=== PATIENT | male | born 1960 | race Caucasian/White ===

== ENCOUNTER → 2021-04-10 07:32 | Outpatient (BNVA) | payer OTHER, SELFPAY | PROVIDERS: Visit Provider Physician Assistant | DX: Z12.11 Encounter for screening for malignant neoplasm of colon (principal); Z78.9 Other specified health status | CPT/HCPCS: 99202 ==

== ENCOUNTER → 2021-07-18 07:31 | Outpatient (BNVA) | payer OTHER, SELFPAY | PROVIDERS: Visit Provider Physician Assistant | DX: Z12.11 Encounter for screening for malignant neoplasm of colon (principal); G47.30 Sleep apnea, unspecified; K21.9 Gastro-esophageal reflux disease without esophagitis; Z78.9 Other specified health status; Z86.010 Personal history of colon polyps | CPT/HCPCS: 99212 ==

== ENCOUNTER 2021-07-21 00:03 | Emergency (ER) | payer OTHER, SELFPAY ==
[2021-07-21 00:08] VITALS: BP 109/73; PULSE 90; RESP 18; TEMP 36.6; O2SAT 96; BMI 28.3
[2021-07-21 00:36] LABS: Appearance Urine CLEAR; Color Urine STRAW; Glucose Urine UA 100 MG/DL (NEG); Leukocyte Esterase Urine NEG (NEG); Nitrite Urine NEG (NEG); PH 5.5 (5.0-8.0); Specific Gravity - Urine <= 1.005 (1.005-1.025); Urine Blood NEG (NEG); Urine Ketones NEG (NEG); Urine Protein NEG (NEG-TRACE)
--- NOTE | 2021-07-21 00:37 | ED_ITS ---
HPI - Psych General Chief Complaint: Psychiatric Symptoms Stated Complaint: SI Time Seen by Provider: 07/21/21 00:18 Source: patient Mode of arrival: ambulatory Limitations: no limitations History of Present Illness HPI Narrative: Patient comes to the emergency room complaining of suicidal thoughts, alcohol abuse. Patient refusing to say much, patient states that he has a lot of things going on in his head. Patient states that he feels suicidal, patient has prior history of suicide attempts, mostly cutting. Patient is upset because he he was brought to [facility] rather than in [place] where he usually gets care. Patient denies homicidal ideation Related Data Home Medications Medication Instructions Recorded Confirmed Unobtainable 04/10/21 Allergies Allergy/AdvReac Type Severity Reaction Status Date / Time No Known Allergies Allergy Verified 07/18/21 07:32 [No Known Allergies*] Review of Systems Review of Systems: Constitutional : No Weight loss, No Fever, No Chills, No Night Sweats, No Fatigue, No Malaise ENT/Mouth : No Hearing loss, No Ear Pain, No Nasal Congestion, No Sinus Pain, No Hoarseness, No sore throat, No Rhinorrhea, No Swallowing Difficulty Eyes: No Eye Pain, No Swelling, No Redness, No Foreign Body, No Discharge, No Vision Changes Cardiovascular : No Chest Pain, No SOB, No Dyspnea on Exertion, No Orthopnea, No Edema, No Palpitations Respiratory : No Cough, No Sputum, No Wheezing, No Smoke Exposure, No Dyspnea Gastrointestinal : No Nausea, No Vomiting, No Diarrhea, No Constipation, No abdominal Pain, No Hematochezia, No Melena Genitourinary : no irregular bleeding, No Dysuria, No Urinary Frequency, No Hematuria, No Urinary Incontinence, No Urgency, No Flank Pain, No Urinary Flow Changes, No Hesitancy Musculoskeletal : No joint pain, No Myalgias, No Joint Swelling Skin : No Skin Lesions, No rash Neuro : No Weakness, No Numbness, No Paresthesias, No Loss of Consciousness, No Dizziness, No Headache Psych : Complaining of anxiety and depression, suicidal ideation, no homicidal ideation. Heme/Lymph: No Bruising, No Bleeding,No Lymphadenopathy Endocrine : No Polyuria, No Polydipsia, No Temperature Intolerance PMFSH Past Medical History Medical History Colonic polyp History of colon polyps Long uvula Sleep apnea Social History Social History Advance Directives: No Physical Exam Vital Signs: Vital Signs: Last Vital Signs Temp 98 F 07/21/21 00:08 Pulse 90 07/21/21 00:08 Resp 18 07/21/21 00:08 BP 109/73 07/21/21 00:08 Pulse Ox 96 07/21/21 00:08 BMI result Body Mass Index 28.3 Const: Other: Appearance: Alert. Oriented X3. No acute distress. Eyes: Pupils equal, round and reactive to light. ENT: Pharynx normal. Neck: Normal inspection. Neck supple. No lymph nodes noted. No crepitus CVS: Normal heart rate and rhythm. Pulses normal. Normal S1 and S2 Respiratory: No respiratory distress. Breath sounds normal. No Wheezing. No r ales Abdomen: Soft and nontender. No rigidity. No distention. Skin: Skin warm and dry. Normal skin color. Normal skin turgor. Extremities: No lower extremity edema. No Lacerations. No Rash Neuro: Oriented X 3. No motor deficit. No sensory deficit. Moving all extremities. No slurred speech. CN 2 through 12 grossly intact Psych: Seems that, teary Course Course Course Narrative: Although labs are pending. Behavioral health network consult will be obtained likely in the morning. Patient is on a Section 12 Patient's U tox is positive for cocaine Physician observation started at 01:49 Sign-out given to Dr. Arreola [facility] - Psych Lab Data Result diagrams: 07/21/21 01:12 07/21/21 01:12 Labs: Lab Results 07/21/21 07/21/21 07/21/21 Range/Units 00:27 00:27 00:28 WBC (4.8-10.8) X10*3/uL RBC (4.60-5.80) X10*6/uL Hgb (14.0-18.0) g/dl Hct (42.0-52.0) % MCV (80.0-98.0) fL MCH (27.0-33.0) pg MCHC (31.0-36.0) g/dl RDW (11.0-16.0) % Plt Count (160-400) X10*3/uL MPV (9.4-12.4) fL Immature Gran % (Auto) (0.0-0.4) % Neut % (Auto) (45-73) % Lymph % (Auto) (20-40) % [place] % (Auto) (2-11) % Eos % (Auto) (0-4) % Baso % (Auto) (0-2) % Lymph # (Auto) (1.2-4.9) X10*3/uL [place] # (Auto) (0.1-1.2) X10*3/uL Eos # (Auto) (0.0-0.4) X10*3/uL Baso # (Auto) (0.0-0.2) X10*3/uL Abs Immat Gran (auto) (0.00-0.03) X10*3/uL Absolute Neuts (auto) (2.0-8.3) x10*3/uL Absolute Nucleated RBC (0.0-0.012) X10*3/uL Nucleated RBC % (auto) (0.0-0.2) /100WBC Sodium (135-145) mmol/L Potassium (3.3-5.1) mmol/L Chloride (96-108) mmol/L Carbon Dioxide (22-29) mmol/L Anion Gap (12-20) BUN (9-16) mg/dL Creatinine (0.5-1.4) mg/dL Estim Creat Clear Calc Estimated GFR Random Glucose (60-115) mg/dL Calcium (8.4-10.2) mg/dL Magnesium (1.6-2.6) mg/dL Total Bilirubin (0.0-1.0) mg/dL Direct Bilirubin (0.0-0.5) mg/dL AST (5-37) U/L ALT (0-40) U/L Alkaline Phosphatase (39-117) U/L Total Protein (6.5-8.0) g/dL Albumin (3.5-5.0) g/dL Urine Color STRAW Urine Appearance CLEAR Urine pH 5.5 (5.0-8.0) Ur Specific [place] <= 1.005 (1.005-1.025) Urine Protein NEG (NEG-TRACE) MG/DL Urine Glucose (UA) 100 H (NEG) MG/DL Urine Ketones NEG (NEG) MG/DL Urine Blood NEG (NEG) Urine Nitrite NEG (NEG) Ur Leukocyte Esterase NEG (NEG) Urine Opiates Screen Not Detected (Not Detect) Urine Fentanyl Screen Not Detected (Not Detect) Ur Barbiturates Screen Not Detected (Not Detect) Ur Phencyclidine Scrn Not Detected (Not Detect) Ur Amphetamines Screen Not Detected (Not Detect) U Benzodiazepines Scrn Not Detected (Not Detect) Urine Cocaine Screen POSITIVE H (Not Detect) U Marijuana (THC) Screen Not Detected (Not Detect) Ethyl Alcohol mg/dL COVID-19 (LOKESH) Negative (Negative) COVID-19 Clin Com See Note 07/21/21 07/21/21 07/21/21 Range/Units 01:12 01:12 01:12 WBC 8.1 (4.8-10.8) X10*3/uL RBC 4.99 (4.60-5.80) X10*6/uL Hgb 15.9 (14.0-18.0) g/dl Hct 45.6 (42.0-52.0) % MCV 91.4 (80.0-98.0) fL MCH 31.9 (27.0-33.0) pg MCHC 34.9 (31.0-36.0) g/dl RDW 14.1 (11.0-16.0) % Plt Count 415 H (160-400) X10*3/uL MPV 8.9 L (9.4-12.4) fL Immature Gran % (Auto) 0.7 H (0.0-0.4) % Neut % (Auto) 51.4 (45-73) % Lymph % (Auto) 38.1 (20-40) % [place] % (Auto) 8.2 (2-11) % Eos % (Auto) 0.9 (0-4) % Baso % (Auto) 0.7 (0-2) % Lymph # (Auto) 3.1 (1.2-4.9) X10*3/uL [place] # (Auto) 0.7 (0.1-1.2) X10*3/uL Eos # (Auto) 0.1 (0.0-0.4) X10*3/uL Baso # (Auto) 0.1 (0.0-0.2) X10*3/uL Abs Immat Gran (auto) 0.06 H (0.00-0.03) X10*3/uL Absolute Neuts (auto) 4.2 (2.0-8.3) x10*3/uL Absolute Nucleated RBC 0.000 (0.0-0.012) X10*3/uL Nucleated RBC % (auto) 0.0 (0.0-0.2) /100WBC Sodium 141 (135-145) mmol/L Potassium 3.9 (3.3-5.1) mmol/L Chloride 105 (96-108) mmol/L Carbon Dioxide 27 (22-29) mmol/L Anion Gap 13 (12-20) BUN 5 L (9-16) mg/dL Creatinine 0.90 (0.5-1.4) mg/dL Estim Creat Clear Calc 81.5 Estimated GFR > 60 Random Glucose 77 (60-115) mg/dL Calcium 9.7 (8.4-10.2) mg/dL Magnesium 2.4 (1.6-2.6) mg/dL Total Bilirubin 0.3 (0.0-1.0) mg/dL Direct Bilirubin < 0.2 (0.0-0.5) mg/dL AST 30 (5-37) U/L ALT 35 (0-40) U/L Alkaline Phosphatase 73 (39-117) U/L Total Protein 7.6 (6.5-8.0) g/dL Albumin 4.8 (3.5-5.0) g/dL Urine Color Urine Appearance Urine pH (5.0-8.0) Ur Specific [place] (1.005-1.025) Urine Protein (NEG-TRACE) MG/DL Urine Glucose (UA) (NEG) MG/DL Urine Ketones (NEG) MG/DL Urine Blood (NEG) Urine Nitrite (NEG) Ur Leukocyte Esterase (NEG) Urine Opiates Screen (Not Detect) Urine Fentanyl Screen (Not Detect) Ur Barbiturates Screen (Not Detect) Ur Phencyclidine Scrn (Not Detect) Ur Amphetamines Screen (Not Detect) U Benzodiazepines Scrn (Not Detect) Urine Cocaine Screen (Not Detect) U Marijuana (THC) Screen (Not Detect) Ethyl Alcohol 232 mg/dL COVID-19 (LOKESH) (Negative) COVID-19 Clin Com Discharge Plan Discharge Clinical Impression: Alcohol abuse, Suicidal ideation, Polysubstance abuse Patient Disposition: Still a Patient Prescriptions: No Action Unobtainable 0RF
[2021-07-21 00:49] LABS: COVID-19 Test Negative (Negative)
[2021-07-21 00:53] LABS: Amphetamine Screen Urine Not Detected (Not Detect); Barbiturates, Urine Not Detected (Not Detect); Benzodiazepines Screen Urine Not Detected (Not Detect); Cannabinoid Screen Urine Not Detected (Not Detect); Cocaine Screen Urine POSITIVE (Not Detect); Fentanyl, urine Not Detected (Not Detect); Opiate Screen Urine Not Detected (Not Detect); Phencyclidine Screen Urine Not Detected (Not Detect)
[2021-07-21 01:16] LABS: MANUAL DIFF FLAG NO
[2021-07-21 01:27] LABS: Basophils Absolute Auto 0.1 X10*3/uL (0.0-0.2); Basophils Percent Auto 0.7 % (0-2); Eosinophils Absolute Auto 0.1 X10*3/uL (0.0-0.4); Eosinophils Percent Auto 0.9 % (0-4); Hematocrit 45.6 % (42.0-52.0); Hemoglobin 15.9 g/dl (14.0-18.0); Imm Gran Abs Auto 0.06 X10*3/uL (0.00-0.03); Imm Gran Pct Auto 0.7 % (0.0-0.4); Lymphocytes Absolute Auto 3.1 X10*3/uL (1.2-4.9); Lymphocytes Percent Auto 38.1 % (20-40); Mean Corpuscular HGB Conc 34.9 g/dl (31.0-36.0); Mean Corpuscular Hemoglobin 31.9 pg (27.0-33.0); Mean Corpuscular Volume 91.4 fL (80.0-98.0); Mean Platelet Volume 8.9 fL (9.4-12.4); Monocytes Absolute Auto 0.7 X10*3/uL (0.1-1.2); Monocytes Percent Auto 8.2 % (2-11); Neutrophils Absolute Auto 4.2 x10*3/uL (2.0-8.3); Neutrophils Percent Auto 51.4 % (45-73); Platelet Count 415 X10*3/uL (160-400); Red Blood Count 4.99 X10*6/uL (4.60-5.80); Red Cell Distribution Width 14.1 % (11.0-16.0); White Blood Count 8.1 X10*3/uL (4.8-10.8)
[2021-07-21 01:34] LABS: Ethanol 232 mg/dL
[2021-07-21 01:38] LABS: Alanine Aminotransferase 35 U/L (0-40); Albumin Level 4.8 g/dL (3.5-5.0); Alkaline Phosphatase 73 U/L (39-117); Anion Gap 13 (12-20); Aspartate Amino Transferase 30 U/L (5-37); Bilirubin Direct < 0.2 mg/dL (0.0-0.5); Bilirubin Total 0.3 mg/dL (0.0-1.0); Blood Urea Nitrogen 5 mg/dL (9-16); Calcium 9.7 mg/dL (8.4-10.2); Carbon Dioxide 27 mmol/L (22-29); Chloride 105 mmol/L (96-108); Creatinine Clr Calc Pharmacy 81.5; Estimated Glomerular Filt Rate > 60; Glucose Random 77 mg/dL (60-115); Magnesium 2.4 mg/dL (1.6-2.6); Potassium 3.9 mmol/L (3.3-5.1); Sodium 141 mmol/L (135-145); Total Protein 7.6 g/dL (6.5-8.0)
--- NOTE | 2021-07-21 06:46 | PC.NURSE ---
Patient slept through the night, no distress observed/reported, Amharic speaking, awaiting BHN assessment in the morning, unable to obtain med rec, [facility], VSS, will continue to monitor.
[2021-07-21 07:28] VITALS: BP 93/63; PULSE 80; TEMP 36.6; O2SAT 96
--- NOTE | 2021-07-21 07:51 | PC.NURSE ---
pt is asleep, resps are = and nonlabored. pt is awaiting BHN evaluation.
--- NOTE | 2021-07-21 13:05 | PC.NURSE ---
pt is asleep and easily arousable, awaiting bed assignment from magen wallace.
--- NOTE | 2021-07-21 14:25 | MHC.CARE ---
Pt is a 61 y/o , Omani speaking, male who is previously unknown to the CARE Team.? Yesterday, pt presented to the ED via ambulance with a complaint of worsening depression and suicidal ideation.? Pt resides in [place] and was here in [place] visiting his at the time the ambulance was called.? He reports that he has been off his Prozac for approximately 2 months because it hasn?t been refilled.? He stated that he has to have a mental health evaluation at the [facility] to get his prescriptions refilled.? Pt stated that he has been consuming more alcohol than is his norm as a means of self-medicating since his refills were discontinued.? Pt stated that he fan approximately 2 beers a day and now is consuming up to 7.? He reports that he experiences depression and anxiety, and takes Prozac for his depression.? At present he denies SI and anxiety.? He denied experiencing SI last night but did have a BAL of 232 at 0112 AM when he arrived.? Pt has tested positive for cocaine.? He did not discuss his cocaine use.?? He reports that he is experiencing some depression now but is having no thoughts of self-harm or SI. Pt reports a suicide attempt approximately 7 years ago in which he cut his wrists.? He was subsequently hospitalized in [place] [facility] the [facility] for approximately [facility].? He stated he has not had any attempts since but has had 4 inpatient hospitalizations since, with the last one being in 2018. Pt is alert and oriented x4 and is assessed in his room in the behavioral health pod of the ED.? He is dressed in hospital attire, appears neat, and his stated age.? He is assessed for risk with the help of a Skid Wrapper as pt is not Romanian proficient.? He is engaged in the assessment.? He is not help seeking, nor is he help rejecting.? He stated that he intends on contacting the [facility] to reconcile the issue with his medications.? He is not interested in an inpatient stay as he has services through the [facility] and he feels safe at present.? His speech and eye contact are unremarkable.? His affect is flat.? He does not appear delusional or experiencing symptoms of psychosis.? He denies AVH, SI, HI, , and self-harm urges.? Insight, judgement, memory, concentration, and impulse control appear good. Pt does not appear to meet criteria for inpatient level of care or involuntary admission.? CARE Team has contacted the [facility] team in an effort to confirm if pt had indeed been on Prozac and to assist in scheduling an appointment.? Both attempts failed to get someone on the phone and messages were left.
[2021-07-21] MEDS: Atorvastatin Calcium 40 MG TABLET PO (15:00)
[2021-07-21] MEDS: Gabapentin 300 MG CAPSULE 900 MG PO (15:00)
== END 2021-07-21 15:09 | disposition home or self-care (01) ==
PROVIDERS: Emergency Provider Emergency Medicine
DX: R45.851 Suicidal ideations (principal); F10.10 Alcohol abuse, uncomplicated; Y90.7 Blood alcohol level of 200-239 mg/100 ml; F19.10 Other psychoactive substance abuse, uncomplicated; Z91.51 Personal history of suicidal behavior; Z20.822 Contact with and (suspected) exposure to COVID-19
CPT/HCPCS: 36415; 80048; 80076; 80307; 81003; 82077; 83735; 85025; 87635; 99284

== ENCOUNTER 2021-08-04 10:44 | Outpatient (REF) | payer OTHER, SELFPAY ==
[2021-08-04 11:34] LABS: COVID-19 Test Positive (Negative); IDNOW Serial# 9DB6401D
== END 2021-08-04 10:45 | disposition home or self-care (01) ==
LOC: HO.LAB 10:44
PROVIDERS: Visit Provider Internal Medicine
DX: Z20.822 Contact with and (suspected) exposure to COVID-19 (principal)
CPT/HCPCS: 87635; C9803

== ENCOUNTER → 2021-11-13 07:20 | Outpatient (BNVA) | payer OTHER, SELFPAY | PROVIDERS: Visit Provider Physician Assistant | DX: K21.9 Gastro-esophageal reflux disease without esophagitis (principal); G47.30 Sleep apnea, unspecified; Z86.010 Personal history of colon polyps | CPT/HCPCS: 99212 ==

== ENCOUNTER 2022-03-14 07:02 | Day surgery (SDC) | payer OTHER, SELFPAY ==
[2022-03-12 10:24] VITALS: BMI 27.3
--- NOTE | 2022-03-13 09:10 | HO.ANESPROP2 ---
Documented by User: Danae Izaguirre NP 03/13/22 09:11 HPI - Anesthesia Eval Consult details Narrative: 61yo M for Upper Endoscopy and Colonoscopy [facility] Active Problems Active Problems: All Active Problems (Updated 03/12/22 @ 10:13 by Ailyn Michel RN) Encounter for screening colonoscopy (Acute) Poor historian (Acute) Acid reflux (Acute) History of colon polyps (Acute) Sleep apnea (Acute) Past Medical History Medical History (Updated 03/12/22 @ 10:13 by Ailyn Michel RN) History of colon polyps Long uvula Sleep apnea Family History Family History Maternal Grandmother Cancer Maternal Aunt Cancer Surgical History Surgical History (Updated 03/12/22 @ 10:23 by Ailyn Michel RN) History of surgery on arm History of throat surgery Hx of colonoscopy Hx of eye surgery Social History Social History (Updated 11/13/21 @ 08:02 by Whit Sanchez PA-C) Household Members Other:: Alcohol intake: current Patient Tobacco Use Status: Current everyday Tobacco user Use of substances other than those prescribed or required for medical reasons: No Have you been hit, kicked, punched, or otherwise hurt by someone within the past year? If so, by whom?: No Are you DNR?: No Advance Directives: No Advance Directives Information Provided: Yes Current occupational status: disabled Meds Allergies Allergy/AdvReac Type Severity Reaction Status Date / Time No Known Allergies Allergy Verified 11/13/21 07:25 [No Known Allergies*] Home Medications Medication Instructions Recorded Confirmed Last Taken Type atorvastatin 80 mg tablet 40 mg PO DAILY 07/21/21 03/12/22 Unknown History gabapentin 300 mg capsule 900 mg PO TID 07/21/21 03/12/22 Unknown History lidocaine 5 % topical patch 1 patch topical DAILY 07/21/21 03/12/22 Unknown History naproxen 375 mg tablet 375 mg PO Q8H PRN Pain 07/21/21 03/12/22 Unknown History omeprazole 20 mg tablet,delayed 20 mg PO DAILY 07/21/21 03/12/22 Unknown History release tizanidine 4 mg capsule 4 mg PO BID PRN Pain 11/13/21 03/12/22 Unknown History Exam Exam Date and Time: March 13, 2022 0910 Height,Weight and Vital Signs: Height 5 ft 5 in Weight 74.389 kg Pertinent Lab Results Pertinent Lab Results: Laboratory Tests 07/21/21 07/21/21 01:12 01:12 WBC 8.1 Hgb 15.9 Hct 45.6 Plt Count 415 H Sodium 141 Potassium 3.9 Chloride 105 Carbon Dioxide 27 BUN 5 L Creatinine 0.90 Assessment and Plan Assessment Anesthesia Assessment: Chart Reviewed Documented by User: Velvet Lee MD 03/14/22 10:44 [facility] Past Medical History Medical History (Updated 03/12/22 @ 10:13 by Ailyn Michel RN) History of colon polyps Long uvula Sleep apnea Family History Family History Maternal Grandmother Cancer Maternal Aunt Cancer Family history of problems with anesthesia: No Surgical History Surgical History (Updated 03/12/22 @ 10:23 by Ailyn Michel RN) History of surgery on arm History of throat surgery Hx of colonoscopy Hx of eye surgery History of Problems with Anesthesia: No Social History Social History (Updated 11/13/21 @ 08:02 by Whit Sanchez PA-C) Household Members Other:: Alcohol intake: current Patient Tobacco Use Status: Current everyday Tobacco user Use of substances other than those prescribed or required for medical reasons: No Have you been hit, kicked, punched, or otherwise hurt by someone within the past year? If so, by whom?: No Are you DNR?: No Advance Directives: No Advance Directives Information Provided: Yes Current occupational status: disabled Meds Allergies Allergy/AdvReac Type Severity Reaction Status Date / Time No Known Allergies Allergy Verified 11/13/21 07:25 [No Known Allergies*] Home Medications Medication Instructions Recorded Confirmed Last Taken Type atorvastatin 80 mg tablet 40 mg PO DAILY 07/21/21 03/12/22 Unknown History gabapentin 300 mg capsule 900 mg PO TID 07/21/21 03/12/22 Unknown History lidocaine 5 % topical patch 1 patch topical DAILY 07/21/21 03/12/22 Unknown History naproxen 375 mg tablet 375 mg PO Q8H PRN Pain 07/21/21 03/12/22 Unknown History omeprazole 20 mg tablet,delayed 20 mg PO DAILY 07/21/21 03/12/22 Unknown History release tizanidine 4 mg capsule 4 mg PO BID PRN Pain 11/13/21 03/12/22 Unknown History Exam Airway Mallampati Class: II (Missing multiple teeth top and bottom, nothing loose) TM Dist: >3cm Neck ROM: Full Heart: rrr Lungs: cta Assessment and Plan Assessment Anesthesia Assessment: Anesthesia Plan Discussed and Chart Reviewed Final Anesthetic Review Family History of Problems with Anesthesia: No History of Problems with Anesthesia: No NPO: Yes ASA Class: III Final Preanesthetic Review: No Changes in Pt Med Stat, Meds/Allgs Chart Reviewed and Consent Obtained/Reviewed Patient Risk: Intermediate Procedure Risk: Intermediate Anesthetic Plan Anesthetic Plan: MAC: Disposition: Standard PACU
[2022-03-14 09:07] VITALS: BP 116/79; PULSE 64; RESP 18; TEMP 36.1; O2SAT 98
[2022-03-14 09:08] VITALS: BMI 25.7
[2022-03-14] MEDS: Lactated Ringers 1,000 ML 100 ML IVCONT (09:29)
--- NOTE | 2022-03-14 10:52 | MHC.SHP ---
Pre-Procedural Eval Section A Date of Service: 03/14/22 Section B Chief Complaint: R/o malik's, personal hx of polyps Details of Present Illness: 61 y.[facility], reports having polyps. No personal or fam hx of colon cancer. Also has longstanding GERD + smokes. Here for EGD/colo. Relevant Family History (Specify if Yes): No Relevant Social History: Other (specify) (tobacco, cocaine ) Present Medications: see Short Stay Collaborative assessment Medical History: Significant History ([place], substance use, hx of polyps, GERD ) Allergies: Allergies Allergy/AdvReac Type Severity Reaction Status Date / Time No Known Allergies Allergy Verified 11/13/21 07:25 [No Known Allergies*] Review of Systems Review of Systems Comment: Ten point ROS negative except as above Exam Exam Comment: Gen appear: No acute distress, well nourished HEENT: no icterus Chest: No overt resp distress Abd: soft, nontender, nondistended Psych: Stable affect, answering questions appropriately Neuro: A/Ox3 noted to move all extremities spontaneously Ext: no peripheral edema Plan Diagnosis/Plan: Unchanged I have reviewed the history and physical and performed a pertinent physical examination on my patient. No changes have occurred unless specified. Time Spent With Patient Time: Total time managing care of this patient today ____ minutes.
--- NOTE | 2022-03-14 11:01 | P.OP_ITS ---
Operative Note Operative Note Date of Service: 03/14/22 Narrative: Procedure:?Esophagogastroduodenoscopy Indication:?GERD r/o BE. Endoscopist:?Lina Headley MD Anesthesia Provider:?Dr Velvet Jaffe Anesthesia type:?MAC Instrument:?Olympus GIF-H190 ?? EGD Procedure:?? The procedure, indications, preparation and potential complications were reviewed with the patient, who indicated understanding and gave written informed consent to proceed. A physical exam was performed. The endoscope was introduced through the mouth, and advanced to the third part of duodenum. The mucosa was carefully examined on slow withdrawal of the endoscope. The patient tolerated the procedure well. There were no immediate complications.? ? EGD Findings:? * Esophagus:? Normal mucosa. Z line noted at 37 cm. There was a hiatal hernia with the diaphragmatic pinch noted at 40 cm. Cold forceps biopsies were taken at the GE junction. * Stomach:?Normal gastric mucosa. Random cold forceps gastric biopsies were taken to rule out H Pylori infection.? * Duodenum:?Erythema, edema and erosions noted in duodenal bulb. Cold forceps biopsies were taken from the duodenal bulb and second part of the duodenum. Impression:? * Normal esophagus (biopsy) * Hiatal hernia * Normal gastric mucosa (biopsy) * Bulbar duodenitis (biopsy) Recommendations:?? * Follow path results. * Avoid NSAIDs * Smoking cessation counseling. See separate documentation for colonoscopy (Dr Hercules)
--- NOTE | 2022-03-14 11:35 | W.PM.OPN ---
Operative Note Operative Note Date of Service: 03/14/22 Narrative: Operative Information Procedure Description: Colonoscopy Indication: screening Anesthesia: MAC COLONOSCOPY Instrument: Olympus variable stiffness pediatric scope 190L Colonoscopy Monitoring: Vital signs and clinical assessment, continuous EKG monitoring, Pulse oximetry, Carbon Dioxide monitoring and blood pressure monitoring were done throughout the procedure. Colon withdrawal time was 10 minutes. Procedure: The patient was placed in the left lateral decubitis position and pre-procedure medications were administered. After a digital rectal examination of the ano-rectum, the video colonoscope was inserted into the rectum and advanced through the colon to the cecum/TI. The colonoscope was slowly withdrawn in a retrograde panoramic fashion and the colon mucosa was carefully examined including a retroflexed view of the rectum. Findings and interventions are described below. Procedure Difficulty: easy Findings: Terminal Ileum-not intubated due to debris in right colon Cecum:normal Ascending Colon: 10 mm sessile polyp removed with cold snare Transverse Colon -normal Descending Colon:normal Sigmoid Colon: mild diverticulosis Rectum: Retroflexion with small internal hemorrhoids, grade I, 12 mm sessile polyp removed with codl snare, x 2 sessile polyps 4-6 mm removed with cold snare Anorectum - normal Colon preparation: [place] Bowel Preparation Scale Right colon; 1 Transverse colon: 1-2 Left colon; 2 (0 = Unprepared colon segment with mucosa not seen due to solid stool that cannot be cleared. 1 = Portion of mucosa of the colon segment seen, but other areas of the colon segment not well seen due to staining, residual stool and/or opaque liquid. 2 = Minor amount of residual staining, small fragments of stool and/or opaque liquid, but mucosa of colon segment seen well. 3 = Entire mucosa of colon segment seen well with no residual staining, small fragments of stool or opaque liquid) Impression and Post Procedure Diagnosis: polyps internal hemorrhoids diverticular disease fair prep right colon Plan: High fiber diet leaflet Avoid straining at stool, epsom salts and sitz bath, anusol supps or cream Repeat Colonoscopy in 2 years due to fair prep on right or earlier if clinically indicated Above findings were reviewed with the patient and relevant handouts were provided if indicated.
[2022-03-14 11:43] VITALS: BP 96/64; PULSE 70; RESP 16; TEMP 36.1; O2SAT 97
[2022-03-14 11:58] VITALS: BP 113/76; PULSE 65; RESP 16; TEMP 36.8; O2SAT 99
== END 2022-03-14 12:40 | disposition home or self-care (01) ==
PROVIDERS: Visit Provider Internal Medicine
PROC: (CPT 45385; principal; 2022-03-14 10:10)
DX: Z12.11 Encounter for screening for malignant neoplasm of colon (principal); Z86.010 Personal history of colon polyps; D12.2 Benign neoplasm of ascending colon; D12.8 Benign neoplasm of rectum; K57.30 Diverticulosis of large intestine without perforation or abscess without bleeding; K64.0 First degree hemorrhoids; K21.9 Gastro-esophageal reflux disease without esophagitis; K29.80 Duodenitis without bleeding; K44.9 Diaphragmatic hernia without obstruction or gangrene; G47.33 Obstructive sleep apnea (adult) (pediatric)
CPT/HCPCS: 45385; 43239; 88305; 88342

== ENCOUNTER 2023-05-13 10:09 | Outpatient (REF) | payer OTHER, SELFPAY ==
--- NOTE | ~2023-05-13 | MR_ITS ---
EXAMINATION: MR LUMBAR SPINE WITHOUT CONTRAST CLINICAL INFORMATION: 25-year-old with chronic low back pain and right leg and hip pain. COMPARISON: 08/02/2007 MRI. TECHNIQUE: MRI of the lumbar spine was obtained using routine sequences without contrast. FINDINGS: Coronal Alignment: Slight partially visualized lower thoracic levocurvature on current study. Sagittal Alignment: There is slight retrolisthesis at L2-L3 which has developed since the previous exam. Otherwise normal lumbosacral alignment in the sagittal plane. Lumbosacral Junction: Transitional lumbosacral anatomy with lowest lumbar-like segment labeled as L5, which is partially sacralized with a transitional intervertebral disc. Vertebral Bodies: Stable vertebral body heights. No interval compression fractures. Disc Spaces and Endplates: Mild disc volume loss at L5-S1 with disc desiccation progressed from previous study. Nnlxxixn-ih-wvqvjd disc space height loss at L4-L5 slightly progressed with disc desiccation and tiny Schmorl's nodes with mild spondylosis. Disc desiccation developed at L3-L4 since previous study with stable disc space height, with new tiny Schmorl's nodes. Nvmc-cz-xjvggmry disc volume loss asymmetric to the left at L2-L3 and disc desiccation progressed from previous study with spondylosis also progressed. Anterior marginal endplate spurring at L1-L2 and T12-L1. Spinal Canal: No abnormal developmental findings. Bone Marrow: Mild type 1 degenerative marrow signal changes are seen along the endplates at L4-L5, L3-L4 and L2-L3 with no suspicious marrow replacing process or bone marrow edema. Conus Medullaris: Terminates at T12. Morphology and signal is normal. Intradural Nerve Roots: Within normal limits. L5-S1: Transitional level. Mild disc bulging is noted asymmetric to the left progressed from previous study, with mild flattening of the ventral dural sac slightly progressed. Minor facet arthropathy is noted on the left and to a lesser degree on the right without central canal stenosis. There is mild narrowing of the left subarticular recess without neural impingement. There is inpf-hm-ceaepthr left-sided foraminal narrowing stable in appearance without neural impingement. L4-L5: There is concentric disc osteophyte complex, with a superimposed central disc herniation which is probably partially calcified, with mass effect on the ventral thecal sac with severe spinal canal stenosis and crowding of the intradural nerve roots slightly progressed from the previous study. Facet hypertrophic changes noted left more than right, slightly progressed on the left with ligamentum flavum thickening. Severe bilateral subarticular and lateral recess stenosis is again noted. There is kzdcpany-bg-niejte neural foraminal stenosis bilaterally with impingement on the L4 nerve roots bilaterally similar to the previous exam. L3-L4: There is diffuse disc bulging and flattening of the ventral dural sac. Small central annular fissure noted with slightly less prominent central disc protrusion. Slightly improved anterior contour of the thecal sac at this level. Mild facet hypertrophic changes bilaterally are stable. There is fdfs-or-zgkcrubz central canal stenosis slightly improved from previous exam and there is bilateral subarticular recess stenosis, left more than right also slightly improved on the right and stable on the left with encroachment on the traversing left L4 nerve root unchanged. Svoo-zc-wwlqlzlu neural foraminal stenosis is noted bilaterally with disc bulging abutting the exiting L3 nerve roots bilaterally unchanged. L2-L3: There is left subarticular to posterolateral foraminal/extra foraminal disc osteophyte complex similar to the previous study. There is a new right subarticular extruded disc herniation at this level with increased indentation of the right ventral thecal sac. Right posterolateral disc osteophyte complex is stable. Fmbenvqw-dx-hgskot central spinal canal stenosis slightly progressed from previous exam, with bilateral subarticular recess stenosis, right more than left, stable on the left and progressed on the right. Mild foraminal narrowing noted bilaterally, left more than right with disc osteophyte complex abutting the extraforaminal left L2 nerve root unchanged. L1-L2: Left subarticular to lateral foraminal disc osteophyte complex has developed at this level since the previous exam with a tiny left subarticular annular fissure. There is a right subarticular to inferior foraminal disc protrusion developed on current study. There is mild bilateral facet hypertrophic degenerative change and ligamentum flavum thickening slightly progressed from previous study, now with mild central canal stenosis and crowding of the intradural nerve roots, with bilateral subarticular recess stenosis, left more than right with impingement on the traversing left L2 nerve root since the previous study. Moderate left and mild right foraminal stenosis on current exam with disc osteophyte complex abutting the extra foraminal left L1 nerve root. T12-L1: New findings at this level include disc bulging with a left subarticular disc herniation and a larger right subarticular extruded disc herniation with cephalad migration with flattening of the ventral dural sac on both sides of the midline, right more than left and mild ligamentum flavum thickening with iprk-vc-rbrjqzbt central spinal canal stenosis and crowding of the intradural nerve root since previous exam. Disc herniation impinges on the subarticular zones, right more than left likely encroaching on the traversing L1 nerve roots bilaterally. Moderate right and mild left-sided foraminal narrowing is noted with encroachment on the right T12 nerve root. Paravertebral and Included Extraspinal Soft Tissues: The visualized paravertebral soft tissues and included retroperitoneal structures are unremarkable within the limitations of the exam. MR/MR lumbar spine wo con IMPRESSION: 1. Progression of multilevel discogenic degenerative changes and spondylosis since the previous exam, with development of mild retrolisthesis at L2-L3. 2. Multilevel disc bulging and disc herniations as described above, with multilevel disc osteophyte complexes, some of which are new. See above for details. 3. Multilevel spinal canal stenosis, progressed at L4-L5 and L2-L3 and to a lesser degree at L3-L4 and new at T12-L1 and L1-L2. Multilevel subarticular recess stenosis, as detailed by level above. 4. Multilevel bilateral neural foraminal stenosis, most apparent at L4-L5 bilaterally with bilateral L4 nerve root impingement similar to the previous exam and bodd-hg-spaxjuoh neural foraminal stenosis at L3-L4 bilaterally with L3 nerve root impingement unchanged. Disc osteophyte complexes abut the extra foraminal left L2 and L1 nerve roots as detailed above. 5. Transitional lumbosacral anatomy with partial sacralization of L5.
== END 2023-05-13 10:10 | disposition home or self-care (01) ==
LOC: HO.MRI 10:09
PROVIDERS: Visit Provider Internal Medicine
DX: M54.50 Low back pain, unspecified (principal)
CPT/HCPCS: 72148

== ENCOUNTER 2023-12-20 15:11 | Emergency (ER) | payer OTHER, SELFPAY ==
[2023-12-20 15:25] VITALS: BP 123/76; PULSE 83; RESP 18; TEMP 36.8; O2SAT 98; BMI 27.1
--- NOTE | 2023-12-20 15:36 | ED_ITS ---
HPI - General Adult General Chief complaint: General Medical Stated complaint: left ear pain, fever Time Seen by Provider: 12/20/23 15:53 History of Present Illness HPI narrative: Patient complains of left ear pain for 5 days, he thought he had a small pimple or lump on the outer ear and he pressed it and some blood came out but now the ear itself is hurting on the inside and pain is radiating to the left side of his face, no ear pain no headache no dizziness Related Data Home Medications ?Medication ?Instructions ?Recorded ?Confirmed atorvastatin 80 mg tablet 40 mg PO DAILY 07/21/21 03/12/22 gabapentin 300 mg capsule 900 mg PO TID 07/21/21 03/12/22 lidocaine 5 % topical patch 1 patch topical DAILY 07/21/21 03/12/22 naproxen 375 mg tablet 375 mg PO Q8H PRN Pain 07/21/21 03/12/22 omeprazole 20 mg tablet,delayed 20 mg PO DAILY 07/21/21 03/12/22 release tizanidine 4 mg capsule 4 mg PO BID PRN Pain 11/13/21 03/12/22 Previous Rx's ?Medication ?Instructions ?Recorded peg-electrolyte solution 420 gram 240 ml PO ONCE 1 day #4,000 mL 11/13/21 oral solution amoxicillin 875 mg-potassium 1 tab PO Q12H 7 days #14 tabs 12/20/23 clavulanate 125 mg tablet ibuprofen 400 mg tablet 400 mg PO Q6H PRN pain #14 tabs 12/20/23 Allergies Allergy/AdvReac Type Severity Reaction Status Date / Time No Known Allergies Allergy Verified 12/20/23 15:29 [No Known Allergies*] [facility] Past Medical History Source: nursing notes reviewed Medical History (Updated 12/20/23 @ 16:35 by ROSALIE Red) History of colon polyps Sleep apnea Long uvula Surgical History (System 12/25/22 @ 15:04 by Janey Gary) History of esophagogastroduodenoscopy (EGD) History of throat surgery History of surgery on arm Hx of eye surgery Hx of colonoscopy Family History Family History Maternal Grandmother Cancer Maternal Aunt Cancer Social History Social History (System 12/25/22 @ 15:04 by Janey Gary) Household Members Other:: Alcohol intake: current Patient Tobacco Use Status: Current everyday Tobacco user Advance Directives: No Advance Directives Information Provided: No Do you have a plan to hurt others: No Plan Current occupational status: disabled Physical Exam ED Vital Signs: Vital Signs - 24 hr 12/20/23 15:25 12/20/23 16:54 12/20/23 17:01 Temperature 98.2 F 96.2 F L 96.2 F L Pulse Rate 83 79 79 Respiratory Rate 18 18 18 Blood Pressure 123/76 114/77 114/77 Pulse Oximetry 98 97 97 Oxygen Delivery Method Room Air Room Air Room Air BMI result Body Mass Index 27.1 General appearance is no distress The eyes pupils equal round reactive extraocular motions intact The ears the right ear is normal with normal tympanic membrane and normal canal Left ear exam there is significant erythema to the left tympanic membrane, the canal is patent, there is no evidence of any abscess or skin abnormality in the canal or the external ear Pharynx clear Neck is supple The oral exam many teeth have been pulled no sign of gum inflammation or dental infection Neck is supple Respiratory no distress Skin no rash Course Course Course Narrative: This is a rapid medical exam performed by Carole Tai NP: Additional HPI, ROS, PE not included below will be deferred to primary provider. Patient is a 63-year-old male presenting with 5 days of left ear pain, pulsing to left side of face. Denies dental pain. Put a q-tip in left ear and had some bloody drainage. Scant amount of dried blood noted in left EAC. Will need further eval. Patient is treated for otitis media with Augmentin and Motrin and or Tylenol as needed and will follow with his doctor or return if worse Medications Administered Discontinued Medications Generic Name Dose Route Start Last Admin Trade Name Freq PRN Reason Stop Dose Admin Amoxicillin/Clavulanate Potassium 875 mg 12/20/23 16:46 12/20/23 16:53 Amoxicillin/Potassium Clav 875 Mg Tablet PO 12/20/23 16:47 875 mg ONCE ONE Administration Discharge Plan Discharge Clinical Impression: Otitis media Patient Disposition: Home, Self-Care Additional Instructions: The left eardrum was very red and with the pain that is likely infected so we are doing Augmentin antibiotic for 7 days Tylenol and or Motrin if needed for pain Follow with primary doctor next week if not better Return to the ER if your doctor is not available and pain continues, and return to the ER any time for fever worse pain and swelling any worse condition or any concerns Prescriptions: New amoxicillin-pot clavulanate 875-125 mg tablet 1 tab PO Q12H 7 Days Qty: 14 0RF ibuprofen 400 mg tablet 400 mg PO Q6H PRN (Reason: pain) Qty: 14 0RF No Action atorvastatin 80 mg Tablet 40 mg PO DAILY naproxen 375 mg Tablet 375 mg PO Q8H PRN (Reason: Pain) lidocaine 5 % Adhesive Patch,Medicated 1 patch TOPICAL DAILY Rx Instructions: leave on most painful area for up to 12 hrs gabapentin 300 mg Capsule 900 mg PO TID omeprazole 20 mg Tablet,Delayed Release (Dr/Ec) 20 mg PO DAILY tizanidine 4 mg capsule 4 mg PO BID PRN (Reason: Pain) peg-electrolyte soln 420 gram recon soln 240 ml PO ONCE 1 Days Qty: 4000 0RF Rx Instructions: Start at 6:00pm the evening before procedure, drink one 8oz glass every 15 minutes until complete Interventions: ED Discharge Assessment Last Done: 12/20/23 17:01 Discharge Date/Time: 12/20/23 17:03 Print Language: Italian
[2023-12-20] MEDS: Amoxicillin/Potassium Clav 875 MG TABLET PO (16:53)
[2023-12-20 16:54] VITALS: BP 114/77; PULSE 79; RESP 18; TEMP 35.7; O2SAT 97
[2023-12-20 17:01] VITALS: BP 114/77; PULSE 79; RESP 18; TEMP 35.7; O2SAT 97
== END 2023-12-20 17:03 | disposition home or self-care (01) ==
PROVIDERS: Emergency Provider Internal Medicine
DX: H66.92 Otitis media, unspecified, left ear (principal); R23.8 Other skin changes; H92.02 Otalgia, left ear; Z79.899 Other long term (current) drug therapy
CPT/HCPCS: 99283

== ENCOUNTER 2024-07-30 09:16 | Outpatient (AMB) | payer OTHER, SELFPAY ==
--- NOTE | 2024-07-30 09:19 | A.OFFVIS_ITS ---
Vital Signs 07/30/24 09:32 Height 5 ft 5 in Weight 165 lb 5.547 oz BMI 27.5 BP 126/70 Blood Pressure Location Lt brachial Position Sitting Pulse 79 Intake Visit Reasons: Repeat [place] , Acid reflux Intake Note: Wilfredo presents in the office as a follow up for GERD and colo screening. CC: States he has acid reflux but denies all other gi concerns. Patient Resource Specialist Required: Yes Allergies No Known Allergies [No Known Allergies*] Allergy (Verified 07/30/24 09:32) HPI HPI Repeat [place] , Acid reflux: Details: Patient is a 64-year-old male with PMH of sleep apnea, substance use disorder. Last visit with ROSALIE Hammonds 11/13/2021 for pre colonoscopy screening and acid reflux. Wilfredo is here today for colonoscopy recall due to fair prep quality in 2022. Additionally, Wilfredo reports experiencing acid reflux almost daily described as a burning sensation. He takes the omeprazole 20 mg as prescribed with no food and waits at least 30 minutes before eating. He consumes about four cups of black coffee daily, which may be contributing to his symptoms. He also experiences occasional constipation, pooping 2-3 times a week, sometimes requiring him to push hard. Blood-streaked stools occur sometimes, especially when he pushes hard. Shares these symptoms were present prior to last colonoscopy. Uses CPAP machine nightly without difficulties. Patient denies: fever/chills, n/v, appetite changes, pyrosis, regurgitation,dysphasia, unintentional wt loss, ab pain, or melena/hematochezia. Diet: Consumes a variety of foods including known irritants like coffee, fatty, fried, and spicy foods. Alcohol/Tobacco/Drug Use: - Drinks four beers, three days a week. - Denies recreational drug use. - Quit smoking approx 8 days ago. -tolerated anesthesia in the past without difficulty. [facility] Medical History (Updated 07/30/24 @ 11:51 by Debra Tan CNP) Constipation History of colon polyps Sleep apnea Long uvula Surgical History History of esophagogastroduodenoscopy (EGD) History of throat surgery History of surgery on arm Hx of eye surgery Hx of colonoscopy Family History Maternal Grandmother Cancer Maternal Aunt Cancer Social History Household Members Other:: Alcohol intake: current Patient Tobacco Use Status: Current everyday Tobacco user Current occupational status: disabled Review of Systems Const Reports as per HPI ENT Reports as per HPI Card Reports as per HPI Resp Reports as per HPI GI Reports as per HPI Reports as per HPI Physical Exam Vital Signs: Last Vital Signs Pulse 79 07/30/24 09:32 BP 126/70 07/30/24 09:32 BMI result Body Mass Index 27.5 Const General: healthy appearing, no acute distress and well developed Nutritional Appearance: well nourished Orientation/consciousness: patient oriented x3 HEENT Head: Yes normal to inspection, Yes normocephalic and Yes atraumatic Face and sinus: Yes normal facial exam Eyes General: appearance normal, both eyes and all related structures Neck Neck: Yes normal visual inspection Resp Effort & Inspection: normal respiratory effort, able to speak in complete sentences, no tracheal deviation and symmetric chest movement Auscultation: clear to auscultation bilaterally Cardio Jugular venous distension: no JVD Rate: regular rate Rhythm: regular rhythm Heart sounds: S1 normal heart sound present, S2 normal heart sound present, no gallops and no murmurs GI Inspection: Yes normal to inspection and No distended Palpation (GI): Soft to palpation, not firm, nontender and No hepatosplenomegaly present Auscultation: normal bowel sounds Rectal Exam - Male: Yes visual inspection normal, Yes normal sphincter tone, No External hemorrhoid(s) present, No mass and No tenderness Neuro General: patient oriented x3 Gait exam (Neuro): Normal gait present Psych Appearance: grossly normal Mental Status: mental status grossly normal Speech and movement: Normal speech and movement present Affect: normal affect Attitude: cooperative Thought process: Normal thought process present Thought content: Normal thought content present Insight: Good insight present (Psych) Judgement: Good judgement present (Psych) Results Reviewed Results Reviewed: Operative Note Date of Service: 03/14/22 Narrative: Procedure:?Esophagogastroduodenoscopy Indication:?GERD r/o BE. Endoscopist:?Lina Headley MD Anesthesia Provider:?Dr Velvet Jaffe Anesthesia type:?MAC Instrument:?Olympus GIF-H190 ?? EGD Procedure:?? The procedure, indications, preparation and potential complications were reviewed with the patient, who indicated understanding and gave written informed consent to proceed. A physical exam was performed. The endoscope was introduced through the mouth, and advanced to the third part of duodenum. The mucosa was carefully examined on slow withdrawal of the endoscope. The patient tolerated the procedure well. There were no immediate complications.? ? EGD Findings:? * Esophagus:? Normal mucosa. Z line noted at 37 cm. There was a hiatal hernia with the diaphragmatic pinch noted at 40 cm. Cold forceps biopsies were taken at the GE junction. * Stomach:?Normal gastric mucosa. Random cold forceps gastric biopsies were taken to rule out H Pylori infection.? * Duodenum:?Erythema, edema and erosions noted in duodenal bulb. Cold forceps biopsies were taken from the duodenal bulb and second part of the duodenum. Impression:? * Normal esophagus (biopsy) * Hiatal hernia * Normal gastric mucosa (biopsy) * Bulbar duodenitis (biopsy)Recommendations:?? * Follow path results. * Avoid NSAIDs * Smoking cessation counseling. See separate documentation for colonoscopy (Dr Hercules) Operative Note Date of Service: 03/14/22 Narrative: Operative Information Procedure Description: Colonoscopy Indication: screening COLONOSCOPY Procedure: The patient was placed in the left lateral decubitis position and pre-procedure medications were administered. After a digital rectal examination of the ano-rectum, the video colonoscope was inserted into the rectum and advanced through the colon to the cecum/TI. The colonoscope was slowly withdrawn in a retrograde panoramic fashion and the colon mucosa was carefully examined including a retroflexed view of the rectum. Findings and interventions are described below. Procedure Difficulty: easy Findings: Terminal Ileum-not intubated due to debris in right colon Cecum:normal Ascending Colon: 10 mm sessile polyp removed with cold snare Transverse Colon -normal Descending Colon:normal Sigmoid Colon: mild diverticulosis Rectum: Retroflexion with small internal hemorrhoids, grade I, 12 mm sessile polyp removed with codl snare, x 2 sessile polyps 4-6 mm removed with cold snare Anorectum - normal Colon preparation: [place] Bowel Preparation Scale Right colon; 1 Transverse colon: 1-2 Left colon; 2 Impression and Post Procedure Diagnosis: polyps internal hemorrhoids diverticular disease fair prep right colon Plan: High fiber diet leaflet Avoid straining at stool, epsom salts and sitz bath, anusol supps or cream Repeat Colonoscopy in 2 years due to fair prep on right or earlier if clinically indicated PathologyCollected: 03/14/22 Location: [facility] Received: 03/14/22 Diagnosis A. Duodenum, biopsy: Duodenal mucosa with preserved villi and no specific change. B. Stomach, biopsy: Gastric antral and body mucosa with mild reactive changes and focal minimal chronic inactive inflammation; negative for H pylori, intestinal metaplasia and dysplasia. C. Gastroesophageal junction, biopsy: Squamous mucosa with hyperplasia, mild chronic inflammation, and reactive changes compatible with reflux injury; no columnar mucosa present. D. Colon, ascending, polyp: Tubular adenoma; negative for high-grade dysplasia and carcinoma. E. Colon, 3 rectal polyps: Tubular adenomas, two; negative for high-grade dysplasia and carcinoma, and hyperplastic polyp, one. Clinical History Pre-Op Dx: r/o Ramos's, personal hx of polyps Post-Op Dx: Duodenitis, hiatal hernia, colon polyps, diverticulosis, hemorrhoids Assessment & Plan Assessment & Plan (1) Encounter for screening colonoscopy: Comment: 03/14/22 complete colo with fair prep -Duodenitis, hiatal hernia, tubular adenomas polyps, diverticulosis, hemorrhoids Code(s): Z12.11 - Encounter for screening for malignant neoplasm of colon Category: Medical Plan: Due for repeat colonoscopy given fair prep at time of Mar 2022 colo. Diagnostic Tests: Prescriptions for laxative tablets and Miralax sent to pharmacy; instructions for Gatorade purchase and clear liquid diet given. He understands to take senna tablets - 2 tablets starting four days before procedure, plus liquid prep day before to ensure complete bowel prep. Medications: - understands to hold NSAIDs 7 days prior to procedure. - Use Tylenol if needed for pain. Patient educated on procedure preparation, including avoiding certain foods and ensuring clear liquid intake. Advised on necessity for ride post-procedure due to sedation. (2) Acid reflux: Comment: Mar 2022 EGD-Normal esophagus (biopsy), Hiatal hernia, Normal gastric mucosa (biopsy), Bulbar duodenitis (biopsy) Code(s): K21.9 - Gastro-esophageal reflux disease without esophagitis Category: Medical Qualifiers: Esophagitis presence: without esophagitis Qualified Code(s): K21.9 - Gastro-esophageal reflux disease without esophagitis Plan: We will repeat upper endoscopy at time of colonoscopy given continued symptoms. The size of hiatal hernia is not indicated on most recent EGD, discussed potential impacts of larger hernia. Medications: Change from omeprazole to pantoprazole 20 mg daily. Encouraged to take pantoprazole as prescribed, taken at least 30-60 minutes before a meal. Education on GERD prevention : -Advised against heavy meals; encouraged small, frequent meals instead of large ones. - Instructed to remain upright for 2?3 hours after eating. - Advised to avoid late-night meals, spicy foods, caffeine, alcohol, known d ietary triggers, and tight-fitting clothing. - Emphasis placed on gradual implementation of lifestyle changes to improve adherence and symptom control. (3) Constipation: Code(s): K59.00 - Constipation, unspecified Category: Medical Qualifiers: Constipation type: unspecified constipation type Qualified Code(s): K59.00 - Constipation, unspecified Plan: -no evidence of hemorrhoids on KATIE today. -Start stool softener PRN; adjust frequency based on stool consistency. -Monitor for ongoing blood in stool; if stools become too loose, decrease or stop softener. -Artist And Repertoire Manager to increase water intake and dietary fiber. -Colonoscopy to further evaluate for internal hemorrhoids or other causes of rectal bleeding Plan follow up after double or sooner as needed. Time: I spent a total of 40 minutes on the date of encounter which includes: Preparing to see the patient (reviewed previous documentation, test results and medical history) Performing a medically appropriate exam and/or evaluation Ordering medications, tests, and procedures Documenting clinical information in the health record Medications: New bisacodyl Take four tablets once for 1 day per colonoscopy instructions 5 mg PO ONCE 1 day 4 tabs 0RF polyethylene glycol 3350 (Miralax) per colonoscopy prep instructions 238 grams PO ONCE 238 grams 0RF pantoprazole 20 mg PO DAILY 90 tabs 1RF docusate sodium 100 mg PO ONCE 90 caps 1RF constipation bisacodyl Take four tablets once for 1 day per colonoscopy instructions 5 mg PO ONCE 1 day 4 tabs 0RF sennosides (senna) take two nightly starting four days before colonoscopy 8.6 mg PO DAILY 8 caps 0RF Coding Level of Care Code Established Pt Est Pt Level 3 (15792) Patient Type Established Diagnoses Encounter for screening colonoscopy Z12.11 Gastroesophageal reflux disease without esophagitis K21.9 Esophagitis presence: without esophagitis Constipation, unspecified constipation type K59.00 Constipation type: unspecified constipation type
[2024-07-30 09:32] VITALS: BP 126/70; PULSE 79; BMI 27.5
--- OUTSIDE RECORDS SUMMARY | 2024-07-30 09:41 | XMS_ITS ---
Author Name [facility] Address [address] [place] [address] Care Team Providers Care Uniform Force Captain Name Role Phone JAM SAAVEDRA Primary Care Provider Unavail able Selected Encounter This section includes the information on record at OR for the Encounter. Date/Time Encounter Type Encounter Description Reason Provider Source May 28, 2024 12:15 PM CPTRZ OPH DX IMG PST SGM RTA OPTOMETRY ICD-10-CM H35.373 Puckering of macula, bilateral MERHAR,PAM B IHE Encounter Template Text not used by OR Assessments - Encounter Diagnoses This section includes the primary and secondary diagnoses documented for the Encounter. Date/Time Primary/Secondary Diagnosis Diagnosis Name Provider Source May 28, 2024 02:01 PM PRIMARY Puckering of macula, bilateral MERHAR,PAM B [place] [facility] [place] [facility] May 28, 2024 02:01 PM SECONDARY Drusen (degenerative) of macula, left eye MERHAR,PAM B OR [facility] [place] [facility] Plan of Treatment: Future Appointments (+ 6 months) and Future Tests (+/- 45 days) The Plan of Treatment section includes future care activities for the patient from all [facility] treatment[facility]ilities. This section includes future appointments and future orders which are active, pending or scheduled. Future Appointments This section includes appointments that were scheduled to occur 6 months from the date of the Encounter, up to a maximum of 20 appointments. The data comes from all [place] treatment facilities. Appointment Date/Time Appointment Type Appointme nt Facility Name May 29, 2024 09:30 AM AMBULATORY - MEDICINE [facility] July 30, 2024 09:30 AM AMBULATORY - NONE OR [facility] [place] [facility] July 30, 2024 10:30 AM AMBULATORY - MEDICINE [facility] Active, Pending, and Scheduled Orders This section includes a listing of several types of active, pending, and scheduled orders, including clinic medications orders, diagnostic test orders, procedure orders and consult orders; where the start date of the order is 45 days before the date of the Encounter or 45 days after the date of theEncounter. The data comes from all [facility] facilities. Test Date/Time Test Type Test Details Facility Name May 29, 2024 12:00 PM Consult Order COMMUNITY CARE-COLONOSCOPY SCREENING Cons Brand Leader'cinthia Pradhan COLDWATER Social History: Smoking Status (Most current) and Tobacco Use (All prior to encounter date) This section includes the most current, and the historical, smoking and tobacco- related health factors from the [place] facility where the Encounter took place. Current Smoking Status This section includes the most current smoking, or tobacco-related health factor, from the [place] facility where the Encounter took place. Date/Time Current Smoking Status Comment [facility] Jan 04, 2021 09:23 AM VA-TOBACCO USER EVERY DAY [facility] Tobacco Use History This section includes a history of the smoking, or tobacco-related health factors, that were collected on or before the date of the Encounter. The data comes from the OR facility where the Encounter took place. Date/Time Smoking Status/Tobac co Use Comment Facility Jan 04, 2021 09:23 AM VA-TOBACCO USE ADVICE OR [facility] [place] [facility] Jan 04, 2021 09:23 AM VA-TOBACCO USE DORMITORY MAID NO [facility] [place] [facility] Jan 04, 2021 09:23 AM VA-TOBACCO USE MED NO [facility] [place] [facility] Jan 04, 2021 09:23 AM VA-TOBACCO USE WI 30 MIN OF WAKEUP OR [facility] [place] [facility] Jan 04, 2021 09:23 AM VA-TOBACCO USER EVERY DAY [facility] [place] [facility] Jan 12, 2020 02:43 PM VA-TOBACCO USE 30 YEARS OR MORE [facility] Jan 12, 2020 02:43 PM VA-TOBACCO USE ADVICE [facility] Jan 12, 2020 02:43 PM VA-TOBACCO USE DORMITORY MAID YES Wants more patches. Has worked in the past for him. [facility] Jan 12, 2020 02:43 PM VA-TOBACCO USE MED NOTIFY PROVIDER Patches please. [facility] Jan 12, 2020 02:43 PM VA-TOBACCO USE WI 30 MIN OF WAKEUP [facility] Jan 12, 2020 02:43 PM VA-TOBACCO USER EVERY DAY [facility] Jun 18, 2017 06:19 PM TOBACCO INPATIENT DESIRES MEDS [facility] Jun 18, 2017 04:38 PM V1-PT NOT INTERESTED IN QUIT TOBACCO USE [facility] Apr 03, 2017 09:30 AM CURRENT SMOKER 10 Cigarettes per day [facility] Apr 03, 2017 09:30 AM V1-PT DECLINES REF TO TOBACCO CESS PRGM [facility] Apr 03, 2017 09:30 AM V1-PT THINKING ABOUT QUIT TOBACCO USE [facility] Mar 20, 2017 06:40 AM TOBACCO INPATIENT DECLINES MEDS [facility] May 27, 2011 04:34 PM CURRENT SMOKER 1/2 ppd [facility] May 27, 2011 04:34 PM V1-PT DECLINES TOBACCO CESSATION MEDS [facility] May 27, 2011 04:34 PM V1-PT NOT INTERESTED IN QUIT TOBACCO USE [facility] May 16, 2007 01:37 PM V1-PT DECLINES REF TO TOBACCO CESS PRGM [facility] May 16, 2007 01:37 PM V1-PT DECLINES TOBACCO CESSATION MEDS [facility] May 16, 2007 01:37 PM V1-PT NOT INTERESTED IN QUIT TOBACCO USE [facility] Oct 28, 2006 09:02 AM CURRENT SMOKER one pack for 27 years. [facility] Advance Directives: All historical and current Section Date Range: From patient's date of to the date document was created. This section includes ALL of a patient's completed or amended [place] Advance and Rescinded Directives. The entries below indicate that a directive exists for the patient, but an actual copy is not included with this document. The data comes from all OR facilities. Date Advance Directives Provider Source May 27, 2011 ADVANCE DIRECTIVE DISCUSSION Deven BURROWS [facility] Encounter Notes: All associated encounter notes This section contains the clinical notes associated to the Encounter. Date/Time Encounter Note(s) Provider Source May 28, 2024 11:44 AM OPTOMETRY CONSULT: LOCAL TITLE: CONSULT REPORT/OPTOMETRY OCT STANDARD TITLE: OPTOMETRY CONSULT DATE OF NOTE: MAY 28, 2024@11:44 ENTRY DATE: MAY 28, 2024@11:44:53 AUTHOR: ROSIE TEJADA EXP COSIGNER: PAM CERVANTES URGENCY: STATUS: COMPLETED CONSULT REPORT/OPTOMETRY OCT Has ADDENDA Macula OCT report: Macula OCT reviewed for patient with Epiretinal membrane OU OD:normal foveal contour and epiretinal membrane, (-)SRF/IRF OS:normal foveal contour and epiretinal membrane, medium sized parafoveal drusen (-)SRF/IRF A/P: A: Puckering of the Macula, OU and Drusen of the macula, OS OU: OCT presented epiretinal membrane with no distortion of retinal layers and medium sized parafoveal confluent drusen in the left eye . No significant disruption or decrease in visual acuity. Stable, monitor in 12 months, repeat Mac OCT if any visual changes noted during examination /ashwin/ ALINE TEJADA OPTOMETRY STUDENT Signed: 05/28/2024 13:11 /ashwin/ PAM CERVANTES OD Dandy Tender Cosigned: 05/28/2024 14:01 05/28/2024 ADDENDUM STATUS: COMPLETED The optometry intern retail participated in this exam, I saw this [place] in conjunction with the optometry student. The visual images were captured by the optometry health aircraft systems technician. Results of testing assessed by the student and reviewed by myself. I agree with the stated findings, assessment and plan. I have added/edited the documentation to reflect my exam findings and changes to the assessment and plan. agreed, mild epiretinal membrane OU, not visually significant. macular drusen OS paracentrally, not visually significant. Continue to monitor. /ashwin/ PAM CERVANTES OD Dandy Tender Signed: 05/28/2024 14:02 ROSIE TEJADA [facility]
== END 2024-07-30 10:11 | disposition home or self-care (01) ==
LOC: HO.HGI 09:17
PROVIDERS: Visit Provider Nurse Practitioner Family
DX: Z01.818 Encounter for other preprocedural examination (principal); Z12.11 Encounter for screening for malignant neoplasm of colon; K21.9 Gastro-esophageal reflux disease without esophagitis; K59.00 Constipation, unspecified
CPT/HCPCS: S0285

== ENCOUNTER → 2024-07-30 09:16 | Outpatient (BNVA) | payer OTHER, SELFPAY | PROVIDERS: Visit Provider Nurse Practitioner Family ==

== ENCOUNTER → 2025-01-12 07:21 | Day surgery (SDC) | payer OTHER, SELFPAY ==
--- NOTE | 2025-01-07 11:02 | HO.ANESPROP2 ---
HPI - Anesthesia Eval Consult details Narrative: 64 yr old male for upper endoscopy, colonoscopy H/O substance use disorder: no further info available POL[place]: on CPAP PMFSH Active Problems Active Problems: All Active Problems Constipation (Acute) Encounter for screening colonoscopy (Acute) Poor historian (Acute) Acid reflux (Acute) History of colon polyps (Acute) Sleep apnea (Acute) Past Medical History Medical History (Updated 07/30/24 @ 11:51 by Debra Tan CNP) Constipation History of colon polyps Sleep apnea Long uvula Family History Family History Maternal Grandmother Cancer Maternal Aunt Cancer Family history of problems with anesthesia: No Surgical History Surgical History History of esophagogastroduodenoscopy (EGD) History of throat surgery History of surgery on arm Hx of eye surgery Hx of colonoscopy History of Problems with Anesthesia: No Social History Social History Household Members Other:: Alcohol intake: current Patient Tobacco Use Status: Current everyday Tobacco user Current occupational status: disabled Meds Allergies Allergy/AdvReac Type Severity Reaction Status Date / Time No Known Allergies (No Known Allergy Verified 07/30/24 09:32 Allergies*) Home Medications ?Medication ?Instructions ?Recorded ?Confirmed ?Last Taken ?Type atorvastatin 80 mg tablet 40 mg PO DAILY 07/21/21 03/12/22 Unknown History gabapentin 300 mg capsule 900 mg PO TID 07/21/21 03/12/22 Unknown History lidocaine 5 % topical patch 1 patch topical DAILY 07/21/21 03/12/22 Unknown History naproxen 375 mg tablet 375 mg PO Q8H PRN Pain 07/21/21 03/12/22 Unknown History omeprazole 20 mg tablet,delayed 20 mg PO DAILY 07/21/21 03/12/22 Unknown History release tizanidine 4 mg capsule 4 mg PO BID PRN Pain 11/13/21 03/12/22 Unknown History Assessment and Plan Final Anesthetic Review Family History of Problems with Anesthesia: No History of Problems with Anesthesia: No
[2025-01-08 08:57] VITALS: BMI 27.5
[2025-01-12 08:31] VITALS: BMI 28.2
[2025-01-12 08:44] VITALS: BP 135/79; PULSE 70; RESP 16; TEMP 36.3; O2SAT 99
[2025-01-12] MEDS: Lactated Ringers 1,000 ML 100 ML IVCONT (08:46)
--- NOTE | 2025-01-12 08:46 | MHC.SHP ---
Pre-Procedural Eval Section A - 24 Hr Update-Section A only Date of Service: 01/12/25 Section B - Complete if H&P > 30 days Chief Complaint: HX colon polyps, gerd Details of Present Illness: Constipation History of colon polyps Sleep apnea Long uvula Surgical History History of esophagogastroduodenoscopy (EGD) History of throat surgery History of surgery on arm Hx of eye surgery Hx of colonoscopy Present Medications: see Short Stay Collaborative assessment Allergies: Allergies Allergy/AdvReac Type Severity Reaction Status Date / Time No Known Allergies (No Known Allergy Verified 07/30/24 09:32 Allergies*) Review of Systems Review of Systems Comment: Ten point ROS negative Exam Exam Comment: Gen appear: No acute distress HEENT: no icterus Chest: No overt resp distress Abd: soft, nontender, nondistended Psych: Stable affect, answering questions appropriately Neuro: A/Ox3 noted to move all extremities spontaneously Ext: no peripheral edema Plan Diagnosis/Plan: Unchanged I have reviewed the history and physical and performed a pertinent physical examination on my patient. No changes have occurred unless specified. Time Spent With Patient Time: Total time managing care of this patient today ____ minutes.
[2025-01-12 08:48] LABS: Cannabinoid Screen Urine Not Detected (Not Detect)
--- NOTE | 2025-01-12 09:52 | PC.NURSE ---
Pt canceled due to positive tox screen, IV removed catheter intact, pt ambulated out of SSS with steady gait
== END ==
PROVIDERS: Nurse Practitioner; Visit Provider Internal Medicine
DX: Z12.11 Encounter for screening for malignant neoplasm of colon (principal); Z53.09 Procedure and treatment not carried out because of other contraindication; R82.5 Elevated urine levels of drugs, medicaments and biological substances; K21.9 Gastro-esophageal reflux disease without esophagitis
CPT/HCPCS: 80307; J2003; J2704; J3010